=== PATIENT | female | born 2000 | race Caucasian/White ===

== ENCOUNTER → 2021-05-19 09:33 | Outpatient (BNVA) | payer BC, SELFPAY | PROVIDERS: Visit Provider Family Medicine | DX: Z30.9 Encounter for contraceptive management, unspecified (principal); Z76.89 Persons encountering health services in other specified circumstances | CPT/HCPCS: 80053; 85025 ==

== ENCOUNTER → 2022-05-07 13:07 | Outpatient (BNVA) | payer BC, SELFPAY | PROVIDERS: PCP Family Medicine; Visit Provider Family Medicine | DX: J02.0 Streptococcal pharyngitis (principal) | CPT/HCPCS: 87880 ==

== ENCOUNTER → 2023-05-01 15:09 | Outpatient (BNVA) | payer OTHER, SELFPAY | PROVIDERS: PCP Family Medicine; Visit Provider Podiatrist Foot & Ankle Surgery | DX: L60.0 Ingrowing nail (principal); L60.3 Nail dystrophy | CPT/HCPCS: 99203 ==

== ENCOUNTER → 2023-09-03 11:07 | Outpatient (BNVA) | payer OTHER, SELFPAY | PROVIDERS: PCP Family Medicine; Visit Provider Emergency Medicine | DX: J02.9 Acute pharyngitis, unspecified (principal) | CPT/HCPCS: 87071; 87880 ==

== ENCOUNTER 2024-08-08 14:50 | Outpatient (CLI) | payer OTHER, SELFPAY ==
[2024-08-08 14:50] VITALS: BMI 33.2
[2024-08-08 15:15] VITALS: BP 118/82; PULSE 93
[2024-08-08 15:30] VITALS: BP 117/75; PULSE 94
[2024-08-08 15:35] VITALS: BP 117/75; PULSE 94; O2SAT 98
== END 2024-08-08 15:44 | disposition home or self-care (01) ==
LOC: OPOB 14:57 → OBGYN 14:58
PROVIDERS: Absent Provider Family Medicine; PCP Family Medicine; Visit Provider Family Medicine
DX: O26.899 Other specified pregnancy related conditions, unspecified trimester (principal); Z3A.00 Weeks of gestation of pregnancy not specified; R10.2 Pelvic and perineal pain; K62.89 Other specified diseases of anus and rectum
CPT/HCPCS: 59025; 99211

== ENCOUNTER 2024-09-20 02:23 | Outpatient (CLI) | payer OTHER, MEDICAID, SELFPAY ==
[2024-09-20] VITALS (8 sets, daily range): BP systolic 95–146; BP diastolic 53–75; PULSE 71–91; RESP 16; TEMP 36.7; O2SAT 98; BMI 34.6
== END 2024-09-20 04:46 | disposition home or self-care (01) ==
LOC: OPOB 02:24 → OBGYN 02:25
PROVIDERS: PCP Family Medicine; Visit Provider Family Medicine
DX: O26.899 Other specified pregnancy related conditions, unspecified trimester (principal); Z3A.00 Weeks of gestation of pregnancy not specified; R10.9 Unspecified abdominal pain
CPT/HCPCS: 59025; 99211

== ENCOUNTER 2024-09-20 13:40 | Inpatient (IN) | payer OTHER, MEDICAID, SELFPAY ==
[2024-09-20] VITALS (68 sets, daily range): BP systolic 77–142; BP diastolic 48–78; PULSE 76–131; RESP 16–18; TEMP 35.1–36.8; O2SAT 99–100; BMI 34.5
[2024-09-20] MEDS: dextrose 5%-lactated ringers 1,000 ML 125 ML IV ×2 (13:32→17:54)
[2024-09-20 13:35] LABS: Basophils % 0.1 %; Eosinophils % 0.2 %; Hematocrit 32.6 % (36-47); Lymphocytes # 1.2 10^3/uL (0.8-4.8); Lymphocytes % 6.8 %; Mean Corpuscular Volume 80.7 fl (85-98); Mean Platelet Volume 10.8 fL (7.4-10.4); Monocytes # 0.5 10^3/uL (0.2-0.9); Monocytes % 2.5 %; Neutrophils # 15.91 10^3/uL (1.8-7.7); Neutrophils % 89.7 %; Nucleated Red Blood Cells % 0.1 %; Platelet Count 285 10^3/cmm (157-399); Red Blood Count 4.04 10^6/uL (3.85-5.65); Red Cell Distribution Width 15.7 % (12.1-15.1); White Blood Count 17.75 10^3/uL (3.29-11.43)
[2024-09-20] MEDS: sodium chloride 0.9% 1,000 ML 999 ML IV (14:35)
[2024-09-20] MEDS: ROPivacaine syringe 100 MG/50 ML SYRINGE 10 MG EPIDURAL ×2 (14:36→17:53)
--- NOTE | 2024-09-20 15:18 | P.ANESUD_ITS ---
Pre-Anesthetic Update Pre-Anesthetic Assessment: Date of Surgery/Procedure: 09/20/24 Preop Cathleen gnosis: active labor Proposed Procedure: labor epidural Any changes to Pre-Anesthetic Assessment?: No Last Intake: NPO > 8 hours, Clears current Labs Last 48hrs: Short CBC 09/20/24 Range/Units 13:15 WBC 17.75 H (3.29-11.43) 10^ 3/uL Hgb 10.10 L (11.27-16.99) g/ dL Hct 32.6 L (36-47) % MCV 80.7 L (85-98) fl Plt Count 285 (157-399) 10^3/c mm Neut % (Auto) 89.7 % Neut # (Auto) 15.91 H (1.8-7.7) 10^3/u L Blood Bank 09/20/24 13:15 Blood Type A Positive Rho(D) Type Rh positive Antibody Screen Negative Vitals: Temperature 98.2 F 09/20/24 13:27 Temperature Source Oral 09/20/24 13:27 Pulse Rate 120 H 09/20/24 15:15 Pulse Rhythm Regular 09/20/24 14:09 Pulse Strength 3+ Normal 09/20/24 14:09 Respiratory Rate 18 09/20/24 13:27 Respiratory Effort Spontaneous, Non- Labored 09/20/24 14:09 Respiratory Depth Normal 09/20/24 14:09 Respiratory Patter n Normal 09/20/24 14:09 Blood Pressure 99/57 09/20/24 15:15 Pulse Oximetry 100 09/20/24 15:09 Oxygen Delivery Me thod Room Air 09/20/24 14:09 Exam: Additional Exam Findings (including area of procedure): WBC 17,000 patient reports previous tooth abscess finished round of amoxicillin on 09/15/24. No signs of infection HR 101 patient in distress, temperature 98.5. Risk of infection discussed with patient throughly and she wishes to proceed. Patient has been laboring at home for sometime, amniotic fluid remains intact. Cardiac Studies: No Data to Display Anesthesia Procedures Epidural: Time Out Performed: Yes Consents Signed: Procedure Consent Consent: requested by attending/covering physician, from patient, risks and benefits reviewed and patient agrees to proceed Lumbar Level: L4-L5 Epidural position: sitting Epidural procedure: sterile prep of area, 1% lidocaine to numb the area, negative for paresthesia passed, neg for paresthesia, test dose given, 1.5% xylocaine 1:200k epi (5ml), 0.2% Ropivacaine bolus ml (5ml), placed PCEA, no systemic response, sterile dressing applied, L.U.D. no apparent complications and 0.2% Ropiavacaine @ mls/hr (10) Additional Comments: TYRELL at 8cm on 3rd attempt -heme -csf. Catheter threaded to 13cm. patient experienced hypotension post epidural placement 100 mcg phenylephrine given IV 1528
[2024-09-20] MEDS: ondansetron 2 mg/ML SDV 2 mL 4 MG IVP ×2 (16:00→22:35)
[2024-09-20] MEDS: ePHEDrine 50 mg/mL Inj 10 MG IVP (16:12)
[2024-09-20] MEDS: oxytocin 30 UNIT/500 ML BAG IV (20:02)
--- NOTE | 2024-09-20 23:12 | PM.OPHPUD ---
Labor & Delivery H&P Update Date of Procedure: September 20, 2024 Date H&P Performed: 09/18/24 Admission Diagnosis: IUP at 38 weeks 2 days gestation in active labor Preop diagnosis: active labor Planned procedure: Expectant management of labor and delivery
--- NOTE | 2024-09-20 23:13 | P.PCNOB_ITS ---
Delivery Note: Date of delivery: September 20, 2024 Estimated blood loss (mL): 200 Pre-Delivery Course: The patient had routine care at [facility]. There were no complications during the . labs: Blood type B+ antibody negative, hepatitis B nonreactive, hepatitis C nonreactive, HIV nonreactive, RPR nonreactive, rubella nonimmune, GC chlamydia negative, she passed her glucose tolerance test, she was GBS negative. Delivery: This is a 24-year-old at 38 weeks 2 days gestation who presented to labor and delivery in active labor. She received an epidural for pain management. When she was 8 cm dilated she underwent artificial rupture of membranes with clear fluid. Rupture of membranes was approximately 6 hours prior to delivery. She had a normal spontaneous vaginal delivery of a viable female infant weight 3110 g, 6 pounds 14 ounces, Apgars 8 and 9 over an intact perineum. The was suctioned at delivery and placed on the mother's chest. The cord was clamped and cut. The placenta was delivered grossly intact and normal to inspection. There was a very small partial third-degree laceration. Less than one quarter of the muscle was torn. This was sutured using 3-0 Vicryl in an interrupted fashion. The second-degree laceration was then sutured using 3-0 chromic in a running fashion. Mother and were doing well after delivery. A&P Assessment and plan (1) Normal spontaneous vaginal delivery: PDMP PDMP Reviewed: Not Reviewed Coding Level of Care Code Acute Code for Chg Fwd Diagnoses Normal spontaneous vaginal delivery O80
[2024-09-21] VITALS (15 sets, daily range): BP systolic 90–136; BP diastolic 54–79; PULSE 88–107; RESP 15–17; TEMP 36.4–36.7; O2SAT 97–99
[2024-09-21] MEDS: acetaminophen 325 mg Tablet 650 MG PO ×3 (01:15→18:50)
[2024-09-21] MEDS: benzocaine-menthol 78 gm Canister 1 SPRAY TOPICAL (02:40)
[2024-09-21] MEDS: docusate sodium 100 mg Capsule PO ×2 (07:45→20:45)
[2024-09-21] MEDS: escitalopram 10 mg Tablet 5 MG PO (07:45)
[2024-09-21] MEDS: ibuprofen 800 mg tablet PO ×3 (07:45→20:45)
[2024-09-21] MEDS: PRENATAL VIT NO.130/IRON/FOLIC 1 EACH TABLET PO (07:45)
[2024-09-21 11:34] LABS: Hematocrit 31.5 % (36-47); Mean Corpuscular HGB Conc 27.6 g/dL (30-55); Mean Corpuscular Hemoglobin 25.2 pg (27-33); Mean Corpuscular Volume 91.3 fl (85-98); Mean Platelet Volume 10.4 fL (7.4-10.4); Platelet Count 108 10^3/cmm (157-399); Red Blood Count 3.45 10^6/uL (3.85-5.65); Red Cell Distribution Width 15.9 % (12.1-15.1); White Blood Count 19.99 10^3/uL (3.29-11.43)
--- NOTE | 2024-09-21 17:35 | P.PN_ITS ---
Subjective 2 Subjective: day 0-1 doing well. She is still having moderate bleeding. She is ambulating, tolerating a regular diet. Vitals/I&O/Wt Last Vital Signs Temp 98.0 F 09/21/24 13:00 Pulse 94 09/21/24 13:00 Resp 16 09/21/24 13:00 BP 101/65 09/21/24 13:00 Pulse Ox 99 09/21/24 07:15 O2 Del Method Room Air 09/21/24 13:00 09/21/24 09/21/24 09/21/24 06:59 14:59 22:59 Intake Total 300 / 915.766 Balance 300 / 815.766 Weight last 48 hrs Weight 97.069 kg Physical Exam 2 Narrative: Alert and oriented, sitting up watching TV, heart regular rate and rhythm, lungs clear to auscultation bilaterally, abdomen is soft and nontender, fundus is firm, extremities have trace edema and no calf tenderness Urinary Catheter Management: Elliott: Cath Placed During This Visit: yes Reason for Continuing Indwelling Catheter: Required Immobilization for Trauma or Surgery or Anesthesia Urinary Catheter Date of Insertion: 09/20/24 Urinary Catheter Time of Insertion: 15:26 Data 09/21/24 11:20 A&P Assessment and plan (1) Spontaneous vaginal delivery: Routine care (2) Third degree perineal laceration during delivery with less than 50% tear of external anal sphincter: PDMP PDMP Reviewed: Not Reviewed Attestations 2 Medical Necessity Statement*: Routine care Coding Level of Care Code Acute Code for Chg Fwd Diagnoses Spontaneous vaginal delivery O80 Third degree perineal laceration during delivery with less than 50% tear of external anal sphincter O70.21
[2024-09-22 04:20] VITALS: BP 96/63; PULSE 74; RESP 16; TEMP 36.8; O2SAT 98
[2024-09-22] MEDS: escitalopram 10 mg Tablet 5 MG PO (09:18)
[2024-09-22] MEDS: ibuprofen 800 mg tablet PO ×2 (09:18→15:26)
[2024-09-22] MEDS: PRENATAL VIT NO.130/IRON/FOLIC 1 EACH TABLET PO (09:18)
[2024-09-22] MEDS: docusate sodium 100 mg Capsule PO (09:18)
[2024-09-22 09:20] VITALS: BP 115/66; PULSE 94; RESP 16; TEMP 36.8; O2SAT 99
--- NOTE | 2024-09-22 13:00 | PM.DCS ---
Discharge Providers Date of Admission: 09/20/24 13:40 Date of Discharge: September 22, 2024 Attending Provider at Admission: Radhika Cooper MD Attending Provider at Discharge: Radhika Cooper MD Primary Care Provider: Radhika Cooper MD Diagnoses at Discharge Discharge Diagnosis (1) Spontaneous vaginal delivery: Status: Acute (2) Third degree perineal laceration during delivery with less than 50% tear of external anal sphincter: Status: Acute Reason for Visit Reason for Visit: ctx Hospital Course Hospital Course This is a 24-year-old G1 now P1 who had a normal spontaneous vaginal delivery of a viable female infant. Mother and have done well . Mother is ambulating, tolerating a regular diet, has decreased vaginal bleeding and is comfortable with discharge home Physical Exam Narrative: Alert and oriented, sitting up in bed holding the , heart regular rate and rhythm, lungs clear to auscultation bilaterally, abdomen is soft and nontender, fundus is firm, extremities have no calf tenderness and no edema. Urinary Catheter Management: Elliott: Cath Placed During This Visit: yes Reason for Continuing Indwelling Catheter: Required Immobilization for Trauma or Surgery or Anesthesia Urinary Catheter Date of Insertion: 09/20/24 Urinary Catheter Time of Insertion: 15:26 Discharge Data Studies Completed and Pending Laboratory Results WBC 19.99 10^3/uL (3.29-11.43) H 09/21/24 11:20 RBC 3.45 10^6/uL (3.85-5.65) L 09/21/24 11:20 Hgb 8.70 g/dL (11.27-16.99) L 09/21/24 11:20 Hct 31.5 % (36-47) L 09/21/24 11:20 MCV 91.3 fl (85-98) D 09/21/24 11:20 MCH 25.2 pg (27-33) L 09/21/24 11:20 MCHC 27.6 g/dL (30-55) L D 09/21/24 11:20 RDW 15.9 % (12.1-15.1) H 09/21/24 11:20 Plt Count 108 10^3/cmm (157-399) L D 09/21/24 11:20 MPV 10.4 fL (7.4-10.4) 09/21/24 11:20 Neut % (Auto) 89.7 % 09/20/24 13:15 Lymph % (Auto) 6.8 % 09/20/24 13:15 [place] % (Auto) 2.5 % 09/20/24 13:15 Eos % (Auto) 0.2 % 09/20/24 13:15 Baso % (Auto) 0.1 % 09/20/24 13:15 Neut # (Auto) 15.91 10^3/uL (1.8-7.7) H 09/20/24 13:15 Lymph # (Auto) 1.2 10^3/uL (0.8-4.8) 09/20/24 13:15 [place] # (Auto) 0.5 10^3/uL (0.2-0.9) 09/20/24 13:15 Eos # (Auto) 0.0 10^3/uL (0.0-0.8) 09/20/24 13:15 Baso # (Auto) 0.0 10^3/uL (0.0-0.1) 09/20/24 13:15 Nucleated RBC % (auto) 0.1 % 09/20/24 13:15 Nucleated RBCs # 0.0 /100WBC 09/20/24 13:15 Blood Type A Positive 09/20/24 13:15 Rho(D) Type Rh positive 09/20/24 13:15 Antibody Screen Negative 09/20/24 13:15 Vitals Last Vital Signs Temp 98.3 F 09/22/24 09:20 Pulse 94 09/22/24 09:20 Resp 16 09/22/24 09:20 BP 115/66 09/22/24 09:20 Pulse Ox 99 09/22/24 09:20 O2 Del Method Room Air 09/22/24 09:20 Discharge Plan Discharge Patient Disposition: Home Condition: Stable Prescriptions: Continued escitalopram oxalate [Lexapro] 5 mg tablet 5 mg PO DAILY Qty: 90 3RF PNV cmb#[id number]-ferrous fumarate-FA [] 28 mg iron- 800 mcg Tablet 1 tab PO DAILY Discontinued Unisom (doxylamine) 25 mg Tablet 25 mg PO Q6H PRN (Reason: Nausea) Discharge Orders: Discharge Order (Routine); Ordered 09/22/24 Ordered By: Radhika Cooper Referrals: Radhika Cooper MD [Primary Care Provider] - 1 month () Discharge Diet: Usual diet Discharge Activity: Limit activity as instructed Patient Instructions: Depression (DC), Opioid Safety (DC), Preeclampsia and Eclampsia After Delivery (GEN), Hemorrhage (DC), OB Discharge Report, OB Food/Drug Interaction Guide, OB Care at Home, Opioid Safety, OB Vaginal Deliveries, Abnormal Bleeding Activity Restrictions/Additional Instructions: Nothing per vagina for 6 weeks Discharge Attestations Time Spent in Discharge Care*: less than 30 min Quality Metrics Clinical Quality Measures [ No reported AMI, CVA or VTE this stay] Coding Level of Care Code Acute Code for Chg Fwd Diagnoses Spontaneous vaginal delivery O80 Third degree perineal laceration during delivery with less than 50% tear of external anal sphincter O70.21
[2024-09-22] MEDS: measles,mumps,rubella pf Vial (w/diluent) 0.5 ML SUBCUT (15:26)
[2024-09-22 15:30] VITALS: BP 108/74; PULSE 76; RESP 16; TEMP 36.8; O2SAT 98
== END 2024-09-22 15:49 | disposition home or self-care (01) | DRG 768 ==
LOC: OPOB 09-22 09:12
PROVIDERS: Admitting Provider Family Medicine; PCP Family Medicine; Visit Provider Family Medicine
DX: O70.21 Third degree perineal laceration during delivery, IIIa (principal); Z37.0 Single live birth; Z3A.38 38 weeks gestation of pregnancy
CPT/HCPCS: 36415; 51702; 59409; 85025; 85027; 86850; 86900; 90707; 96372; J2405; J2590; J2795; J7030; J7121; J9999